=== PATIENT | male | born 1935 | race Asian ===

== ENCOUNTER 2017-09-22 19:24 | Emergency (ER) | payer OTHER, MEDICAID ==
[2017-09-22 21:12] LABS: % BASOPHILS 0.9 % (0.0-2.0); % EOSINOPHILS 5.4 % (0.0-5.0); % LYMPHOCYTES 12.4 % (20.0-50.0); % MONOCYTES 7.6 % (2.0-10.0); % NEUTROPHILS 73.7 % (40.0-80.0); BASOPHILE ABSOLUTE 0.1 Th/cumm (0-0.2); EOSINOPHILE ABSOLUTE 0.5 Th/cmm (0.1-0.4); HEMOGLOBIN 9.4 gm/dL (12-16); LYMPHOCYTE ABSOLUTE 1.1 Th/cmm (1.5-3.0); MEAN CELL VOLUME 79.3 fl (80-99); MEAN CORPUSCULAR HEMOGLOBIN 25.7 pg (27.0-31.0); MEAN CORPUSCULAR HGB CONC 32.4 pg (28.0-36.0); MONOCYTE ABSOLUTE 0.7 Th/cmm (0.3-1.0); NEUTROPHILE ABSOLUTE 6.3 Th/cmm (1.8-8.0); PLATELET COUNT 421 Th/cmm (150-400); RED BLOOD COUNT 3.65 Mil/cmm (3.80-5.80); RED CELL DISTRIBUTION WIDTH 18.5 % (11.5-20.0); WHITE BLOOD COUNT 8.7 Th/cmm (4.8-10.8)
[2017-09-22 21:38] LABS: INR 1.06 (0.5-1.4)
[2017-09-22 21:43] LABS: ALB/GLOB RATIO 1.2 (1.0-1.8); ALBUMIN 3.8 gm/dL (4.2-5.5); ALKALINE PHOSPHATASE 70 U/L (34-104); ANION GAP 12.5 (7.0-16.0); BILIRUBIN,TOTAL 0.3 mg/dL (0.3-1.0); BUN - UREA NITROGEN 26 mg/dL (7-25); CALCIUM SERUM 9.3 mg/dL (8.6-10.3); CARBON DIOXIDE 23.3 mEq/L (21.0-31.0); CHLORIDE 104 mEq/L (98-107); CREATININE - SERUM 1.7 mg/dL (0.7-1.3); GLUCOSE 103 mg/dL (70-105); POTASSIUM SERUM 3.8 mEq/L (3.5-5.1); SGOT 22 U/L (13-39); SGPT/ALT 13 U/L (7-52); SODIUM SERUM 136 mEq/L (136-145); TOTAL PROTEIN,SERUM 7.1 gm/dL (6.0-8.3)
[2017-09-22 22:22] LABS: URINE MICROSCOPIC INDICATED? YES; URINE SOURCE RANDOM
[2017-09-22 22:31] LABS: URINE BILIRUBIN NEGATIVE (NEGATIVE); URINE BLOOD NEGATIVE (NEGATIVE); URINE GLUCOSE (UA) NEGATIVE (NEGATIVE); URINE KETONE TRACE mg/dL (NEGATIVE); URINE LEUKOCYTE ESTERASE NEGATIVE (NEGATIVE); URINE NITRATE NEGATIVE (NEGATIVE); URINE PROTEIN TRACE mg/dL (NEGATIVE); URINE UROBILINOGEN 0.2 E.U./dL (0.2 - 1.0)
[2017-09-22 22:49] LABS: URINE CLARITY CLEAR (CLEAR); URINE COLOR YELLOW
[2017-09-22 22:59] LABS: URINE BACTERIA FEW /hpf (NONE SEEN); URINE EPITHELIAL CELLS OCCASIONAL /lpf (FEW); URINE RBC 0-2 /hpf (0-5); URINE WBC 0-2 /hpf (0-5)
[2017-09-22] MEDS ORDERED: Sodium Chloride 0.9% 1,000 ML IV ONE (23:51)
--- NOTE | 2017-09-23 09:00 | Diagnostic Imaging Report ---
Portable chest x-ray HISTORY: Shortness of breath The heart appears enlarged. Atherosclerotic calcification noted in the aorta. Increased density is noted in the left lower hemithorax. A pleural effusion cannot be excluded. Underlying consolidation or atelectasis cannot be ruled out. Cardiac pacemaker lead wire projects over the right ventricle. IMPRESSION: 1. Cardiomegaly with atherosclerotic calcification 2. Increased density left lower hemithorax. Pneumonia and/or atelectasis cannot be excluded. Question left pleural effusion. 3. Cardiac pacemaker placement
--- NOTE | 2017-11-07 21:59 | ER Physician Documentation ---
DATE OF SERVICE: 09/22/2017 CHIEF COMPLAINT: Syncope. HISTORY OF PRESENT ILLNESS: This is an 82-year-old male with a history of hypertension, presented to Emergency Room for evaluation of syncope episodes for about 5 minutes with loss of consciousness. The patient was brought by ambulance from home. Two days ago, the patient was discharged from [facility] where he received a thorough workup for GI bleed including EGD, colonoscopy. However, those results are pending from transferring to our hospital. After discharge, the patient has been doing well until today. The patient experienced a loss of consciousness for 5 minutes and the blood pressure was low, 62/42 and then the patient did not have any trauma from this loss of consciousness. At the Emergency Room, the patient is awake, alert and oriented. PAST MEDICAL HISTORY: Hypertension, anemia, and hypothyroidism. PAST SURGICAL HISTORY: None. SOCIAL HISTORY: The patient lives at home. Denies any alcohol, tobacco or illicit drug use. REVIEW OF SYSTEMS: GENERAL: The patient denies any headache. The patient has weakness. HEENT: There is no visual change and no sore throat. NECK: There is no nuchal rigidity. CHEST: Clear to auscultation. No chest pain. ABDOMEN: No nausea. No vomiting. EXTREMITIES: No pain. NEUROPSYCH: No focal deficit. PHYSICAL EXAMINATION: VITAL SIGNS: The patient's temperature was 97.7, blood pressure 116/64, pulse 75, respiratory rate 18, oxygen saturation 98% on room air. HEENT: Head atraumatic. Pupils equal, round and reactive to light and accommodated. NECK: No nuchal rigidity. CHEST: Clear to auscultation bilaterally. HEART: S1, S2. No murmurs. ABDOMEN: Soft, nontender, nondistended. EXTREMITIES: With full range of motion. NEUROLOGIC: Awake, alert, oriented to self, time, and place and follow commands. Motor strength 5/5. No sensory deficits. LABORATORY STUDIES: Shows the patient has a WBC 8.7, hemoglobin 9.4, hematocrit of 29. PT 11, INR 1.06, PTT 22.8. Sodium 136, potassium 3.8, chloride 104, bicarb 23.3, BUN 26, creatinine 1.7. Urinalysis essentially unremarkable except urine RBC 2 and hyaline casts ____. ASSESSMENT: The patient has a history of GI bleed and had extensive workup at ____ [facility] with an EGD and colonoscopy, result pending; however, the patient developed episodes of syncope with low blood pressure at home and at Emergency Room, his blood pressure has been normal. However, based on the lab results, BUN and creatinine ratio higher than 20. It is possible that the patient has volume depletion and also a potential continuation bleeding needs to be ruled out. PLAN: IV fluid treatment with 1 liter of normal saline IV bolus and secondly after the treatment, the patient has no symptoms and the patient request being discharged to home and the patient verbalized understanding that it is crucial for the patient to follow up with primary care physician if any symptoms of syncope, GI bleed or any episodes of hypotension occur. The patient's symptoms have improved, so the discharge plan is discharge the patient home. JOB# [id number]
== END 2017-09-23 01:05 | disposition home or self-care (01) ==
LOC: ER 19:24
DX: R55 Syncope and collapse (principal); I10 Essential (primary) hypertension; E03.9 Hypothyroidism, unspecified; D64.9 Anemia, unspecified
CPT/HCPCS: 36415-UA; 71010-TC; 80053-TC; 81001-TC; 85025-TC; 85610-TC; 93005; J7030

== ENCOUNTER 2017-09-25 11:20 | Inpatient (IN) | payer OTHER, MEDICAID ==
--- NOTE | 2017-09-25 11:25 | ED Physician Chart ---
ED Chief Complaint/HPI - Patient Information Date Seen:: 09/25/17 Time Seen:: 11:10 Chief Complaint:: Chest Pain History of Present Illness:: onset x one day of exertional Chest Pain radiating to Left Shoulder with melena ; pt denies H/Aas, neck pain, Dyspnea, Abd. Pain, A/N/V/D/C, fever, chills, or urinary s/s Allergies:: Allergies Allergy/AdvReac Type Severity Reaction Status Date / Time No Known Allergies Allergy Verified 09/22/17 19:34 Historian:: Patient, Family Member Review:: Nurse's Note Reviewed ED Review of Systems - Review of Systems General/Constitutional: No fever, No chills, No weight loss, No weakness, No diaphoresis, No edema, No loss of appetite Skin: No skin lesions, No rash, No bruising Head: No headache, No light-headedness Eyes: No loss of vision, No pain, No diplopia ENT: No earache, No nasal drainage, No sore throat, No tinnitus Neck: No neck pain, No swelling, No thyromegaly, No stiffness, No mass noted Cardio Vascular: Chest pain, No palpitations, No PND, No orthopnea, No edema Pulmonary: No SOB, No cough, No sputum, No wheezing GI: No nausea, No vomiting, No diarrhea, No pain, No melena, No hematochezia, No constipation, No hematemesis G/U: No dysuria, No frequency, No hematuria, No nacturia Musculoskeletal: No bone or joint pain, No back pain, No muscle pain Endocrine: No polyuria, No polydipsia Psychiatric: No prior psych history, No depression, No anxiety, No suicidal ideation, No homicidal ideation, No auditory hallucination, No visual hallucination Hematopoietic: No bruising, No lymphadenopathy Allergic/Immuno: No urticaria, No angioedema Neurological: No syncope, No focal symptoms, No weakness, No paresthesia, No headache, No seizure, No dizziness, No confusion, No vertigo ED Past Medical History - Past Medical History Obtainable: Yes Past Medical History: HTN, Dyslipidemia Family History: Diabetes Melitus, HTN Social History: Non Smoker, No Alcohol, No Drug Use, Surgical History: Pacemaker Psychiatricy History: None Medication: Reviewed Family Medical History - Family Member Mother Ethnicity: Non- ED Physical Exam - Physical Examination General/Constitutional: Awake, Well-developed, well-nourished, Alert, No distress, GCS 15, Non-toxic appearing, Ambulatory Head: Atraumatic Eyes: Lids, conjuctiva normal, PERRL, EOMI Skin: Nl inspection, No rash, No skin lesions, No ecchymosis, Well hydrated, No lymphadenopathy ENMT: External ears, nose nl, TM canals nl, Nasal exam nl, Lips, teeth, gums nl , Oropharynx nl, Tonsils nl Neck: Nontender, Full ROM w/o pain, No JVD, No nuchal rigidity, No bruit, No mass, No stridor Respiratory: Nl effort/Exclusion, Clear to Auscultation, No Wheeze/Rhonchi/Rales Cardio Vascular: RRR, No murmur, gallop, rubs, NL S1 S2, Carotid/Femoral/Distal pulses equal bilaterally GI: No tenderness/rebounding/guarding, No organomegaly, No hernia, Normal BS's, Nondistended, No mass/bruits, No McBurney tenderness : No CVA tenderness Extremities: No tenderness or effusion, Full ROM, normal strength in all extremities, No edema, Normal digits & nails Neuro/Psych: Alert/oriented, DTR's symmetric, Normal sensory exam, Normal motor strength, Judgement/insight normal, Mood normal, Normal gait, No focal deficits Misc: Normal back, No paraspinal tenderness ED Labs/Radiology/EKG Results - Lab Results Comments:: H/H: 8.4/26.7; Na+: 133 - Radiology Results Comments:: NAD - EKG Interpretations EKG Time:: 14:22 Rate & Rhythm: 61; NSR Comments:: old ASMI; non-specific st-t changes ED Septic Shock - . Is Septic Shock (SBP<90, OR Lactate>4 mmol\L) present?: No ED Reassessment (Disposition) - Reassessment Reassessment Condition:: Improved - Diagnosis Diagnosis:: Anemia; Chest Pain; Angina Pectoris; Hyponatremia - Aftercare/Follow up Instructions Aftercare/Follow-Up Instructions:: Counseled pt regarding lab results/diagnosis & need follow up, Counseled pt & family regarding lab results/diagnosis & need follow up - Patient Disposition Discharge/Transfer:: Acute Care w/in this hosp Accepting Physician:: Dr. Chen Time Called:: 1315 Time Responded:: 13:15 Admitted to:: Telemetry Spoke to:: Dr. Chen Admitting Medical Physician:: Dr. Chen Condition at Disposition:: Stable, Improved
[2017-09-25] MEDS ORDERED: Aspirin 81mg Chewable Tab PO STA (11:27)
[2017-09-25] MEDS ORDERED: Aspirin 81mg Chewable Tab ONE (11:40)
[2017-09-25 15:02] LABS: % BASOPHILS 0.4 % (0.0-2.0); % EOSINOPHILS 4.5 % (0.0-5.0); % LYMPHOCYTES 23.7 % (20.0-50.0); % MONOCYTES 7.1 % (2.0-10.0); % NEUTROPHILS 64.3 % (40.0-80.0); EOSINOPHILE ABSOLUTE 0.4 Th/cmm (0.1-0.4); HEMATOCRIT 26.7 % (41.0-60); HEMOGLOBIN 8.4 gm/dL (12-16); LYMPHOCYTE ABSOLUTE 1.8 Th/cmm (1.5-3.0); MEAN CELL VOLUME 78.4 fl (80-99); MEAN CORPUSCULAR HEMOGLOBIN 24.5 pg (27.0-31.0); MEAN CORPUSCULAR HGB CONC 31.3 pg (28.0-36.0); MEAN PLATELET VOLUME 7.3 fl; MONOCYTE ABSOLUTE 0.6 Th/cmm (0.3-1.0); PLATELET COUNT 376 Th/cmm (150-400); RED BLOOD COUNT 3.41 Mil/cmm (3.80-5.80); RED CELL DISTRIBUTION WIDTH 19.1 % (11.5-20.0); WHITE BLOOD COUNT 7.8 Th/cmm (4.8-10.8)
[2017-09-25 15:11] LABS: INR 1.05 (0.5-1.4); PROTHROMBIN TIME (TEST) 10.9 SECONDS (9.5-11.5)
[2017-09-25 15:36] LABS: ALB/GLOB RATIO 1.2 (1.0-1.8); ALBUMIN 3.7 gm/dL (4.2-5.5); ALKALINE PHOSPHATASE 63 U/L (34-104); ANION GAP 8.3 (7.0-16.0); BILIRUBIN,TOTAL 0.3 mg/dL (0.3-1.0); BUN - UREA NITROGEN 25 mg/dL (7-25); CALCIUM SERUM 8.8 mg/dL (8.6-10.3); CARBON DIOXIDE 23.4 mEq/L (21.0-31.0); CHLORIDE 105 mEq/L (98-107); CHOLESTEROL 165 mg/dL (<200); CREATININE - SERUM 1.3 mg/dL (0.7-1.3); CREATININE KINASE 111 U/L (30-223); GLUCOSE 96 mg/dL (70-105); HDL -HIGH DENSITY LIPOPROTEIN 58 mg/dL (23-92); POTASSIUM SERUM 3.7 mEq/L (3.5-5.1); SGOT 19 U/L (13-39); SGPT/ALT 11 U/L (7-52); SODIUM SERUM 133 mEq/L (136-145); TOTAL PROTEIN,SERUM 6.7 gm/dL (6.0-8.3); TRIGLYCERIDES 71 mg/dL (<150)
[2017-09-25] MEDS ORDERED: Aspirin 81mg Chewable Tab PO SCH (19:00)
[2017-09-25] MEDS ORDERED: Morphine Sulfate 2 mg/mL 1mL Syr IVP PRN (21:23)
[2017-09-25 22:10] VITALS: BP 161/74
[2017-09-25] MEDS ORDERED: Pneumococcal Vaccine 0.5 mL Vial IM ONE (22:34)
[2017-09-25] MEDS: Sodium Chloride 0.9% 1,000 ML IV SCH (22:52)
--- NOTE | 2017-09-26 08:27 | Diagnostic Imaging Report ---
Exam: Portable chest x-ray HISTORY: Chest pain Findings: Portable examination of the chest at the 1635 hours reviewed compatible prior study 09/22/2017. The study demonstrates a left basilar thin cut changes with left pleural effusion. Results structures midline the heart is prominent aortic arch calcified. The right lung parenchyma is well aerated. Left-sided pacemaker is noted. Bony thorax intact IMPRESSION 11 cardiomegaly 2. Left basilar atelectasis versus small effusion, follow-up examination recommended.
[2017-09-26] MEDS: Sodium Chloride 0.9% 1,000 ML IV SCH (09:34)
[2017-09-26 11:01] LABS: % BASOPHILS 0.4 % (0.0-2.0); % EOSINOPHILS 11.2 % (0.0-5.0); % LYMPHOCYTES 21.4 % (20.0-50.0); % MONOCYTES 7.8 % (2.0-10.0); % NEUTROPHILS 59.2 % (40.0-80.0); EOSINOPHILE ABSOLUTE 0.8 Th/cmm (0.1-0.4); HEMATOCRIT 26.3 % (41.0-60); HEMOGLOBIN 8.7 gm/dL (12-16); LYMPHOCYTE ABSOLUTE 1.5 Th/cmm (1.5-3.0); MEAN CELL VOLUME 77.9 fl (80-99); MEAN CORPUSCULAR HEMOGLOBIN 25.8 pg (27.0-31.0); MEAN CORPUSCULAR HGB CONC 33.1 pg (28.0-36.0); MEAN PLATELET VOLUME 7.5 fl; MONOCYTE ABSOLUTE 0.5 Th/cmm (0.3-1.0); NEUTROPHILE ABSOLUTE 4.2 Th/cmm (1.8-8.0); PLATELET COUNT 361 Th/cmm (150-400); RED BLOOD COUNT 3.37 Mil/cmm (3.80-5.80); RED CELL DISTRIBUTION WIDTH 18.4 % (11.5-20.0)
[2017-09-26 12:27] LABS: ANION GAP 11.7 (7.0-16.0); BUN - UREA NITROGEN 20 mg/dL (7-25); CALCIUM SERUM 8.9 mg/dL (8.6-10.3); CHLORIDE 107 mEq/L (98-107); CREATININE - SERUM 1.3 mg/dL (0.7-1.3); GLUCOSE 98 mg/dL (70-105); POTASSIUM SERUM 3.7 mEq/L (3.5-5.1); SODIUM SERUM 138 mEq/L (136-145)
--- NOTE | 2017-09-26 12:48 | Consultation ---
DATE OF CONSULTATION: 09/26/2017 INPATIENT GASTROINTESTINAL CONSULTATION REFERRING PHYSICIAN: Dr. Chen. REASON FOR CONSULTATION: GI bleeding. HISTORY: This is a pleasant 82-year-old male who presents to the hospital because of melena that was noticed on one episode. The patient denies having abdominal pain. Denies nausea, vomiting, coffee-ground emesis, hematemesis, diarrhea, constipation. He apparently had GI bleeding, was at [facility] less than a week ago for the same problem of GI bleeding. He had extensive workup according to the where they did an endoscopy, colonoscopy and we do not have these records. The patient is not having any active bleeding at this time. PAST MEDICAL HISTORY: Hypertension, hyperlipidemia. PAST SURGICAL HISTORY: Noncontributory. He has a pacemaker. FAMILY HISTORY: He has a son with colon cancer. SOCIAL HISTORY: Denies tobacco, alcohol or IV drug usage. ALLERGIES: None. CURRENT MEDICATIONS: Vasotec, morphine, Zofran, Protonix. REVIEW OF SYSTEMS: Ten point review of system was performed and pertinent positive was the melena. All other systems were otherwise negative. PHYSICAL EXAMINATION: VITAL SIGNS: Temperature 98.1, breathing 17, pulse of 77, blood pressure 144/72, satting 99%. GENERAL: In no apparent distress. EYES: Anicteric. Normal conjunctivae. HEENT: Normocephalic, atraumatic. Moist mucous membranes. NECK: Soft, supple. CHEST: Clear. No effort. CARDIOVASCULAR: Regular rate and rhythm. ABDOMEN: Soft, nontender, nondistended. SKIN: Warm, dry. EXTREMITIES: Reveal no cyanosis. PSYCHOLOGIC: Alert and oriented x 3. LABORATORY DATA: Show white count 7, hemoglobin 8.7, platelets 361. INR 1.05. LFTs were within normal limits. Creatinine 1.3. IMPRESSION: An 82-year-old male with melena. Cause could be residual from previous GI bleeding, had extensive workup at [facility] less than a week ago where endoscopy, colonoscopy were done, we can get records of these things. PLAN: 1. Await records of EGD and colonoscopy. 2. Follow H and H and transfuse as needed. 3. Continue the Protonix. 4. If bleeding becomes more prominent, options could include bleeding scan and/or angiography. Thank you for allowing me to participate. Please call me if any questions. [facility]# [id number]
--- NOTE | 2017-09-26 13:02 | Consultation ---
DATE OF CONSULTATION: 09/26/[address] Gustavo Durham. HISTORY OF PRESENT ILLNESS: This is an 82-year-old male patient who was recently discharged 3 days prior to this admission from [facility]. The patient had been admitted with rectal bleeding, syncope. The patient had a total GI workup, echocardiogram and cardiac workup, which was negative. At this time, the patient was discharged. ____ the patient was brought here, the patient had a black stool. No history of PND, orthopnea. No history of chest pain. No history of palpitation. PAST MEDICAL HISTORY: The patient has a history of syncope, GI bleed, BPH. FAMILY HISTORY: Unremarkable. SOCIAL HISTORY: No history of smoking, alcohol abuse. ALLERGIES: No known allergies. PHYSICAL EXAMINATION: VITAL SIGNS: Blood pressure 130/80, pulse 70, respirations 20. HEAD: Normocephalic. No lumps or bumps. EYES: Pupils equal, reactive to light. Fundi show AV nicking, sclerae white, conjunctivae pink. NECK: Carotid 2+. Normal upstroke. JVD flat. Thyroid not palpable. Lymph nodes not palpable. CHEST: Shows increased AP diameter. No kyphosis, scoliosis. LUNGS: Bilateral bronchovesicular breath sounds. HEART: PMI fifth intercostal space with lateral to midclavicular line. S1, S2. No S3, S4. Soft systolic murmur. ABDOMEN: Soft. Liver and spleen not palpable. No organomegaly. Bowel sounds active. NEUROLOGIC: No focal neurological deficit. EXTREMITIES: Peripheral pulses 2+. No pedal edema. CLINICAL IMPRESSION: 1. Rectal bleed. 2. Syncope. 3. No chest pain. PLAN: At the present time, patient will be monitored on telemetry bed. GI workup. Since echocardiogram was recently done, which is unremarkable according to the family. No new one will be done. [facility]# [id number]
--- NOTE | 2017-09-26 19:07 | History & Physical ---
ADMIT DATE: 09/25/2017 CHIEF COMPLAINT: Black tarry stool. HISTORY OF PRESENT ILLNESS: This is an 82-year-old male with underlying history of hypertension, was brought to Emergency Room for evaluation of the back stool. The patient stated that he was at [facility] 2 days ago for syncopal episode, found to have GI bleed, had EGD, colonoscopy done, does not remember the results, but her the patient was discharged home with iron supplement. The patient is still having back color stool, so the patient was concerned and came back to the Emergency Room. The patient was evaluated in the Emergency Room. The patient was noticed to have low hemoglobin of 8.4, hematocrit 26.7, admitted for further evaluation and treatment. At the time of evaluation, the patient denies any nausea, no vomiting, no abdominal pain. No fever, no chills, no chest pain, no shortness of breath. No dizziness, no palpitations. However, he did complain of chest pain while being evaluated in the Emergency Room. PAST MEDICAL HISTORY: Recent syncope, hypertension. PAST SURGICAL HISTORY: Denies any past surgeries. FAMILY HISTORY: Denies significant family history. SOCIAL HISTORY: Lives at home. Denies any alcohol, tobacco or street drug use. CURRENT MEDICATIONS: Vasotec, morphine, IV fluid, Zofran, and Protonix. REVIEW OF SYSTEMS: As per HPI, 12-point system reviewed appears negative. PHYSICAL EXAMINATION: VITAL SIGNS: Temperature 97.8, pulse 80, respirations 18, blood pressure 122/68. HEART: S1, S2 normal. LUNGS: Clear to auscultation bilaterally. ABDOMEN: Soft, nontender. NEUROLOGIC: The patient is alert, awake, follows commands. Moves all extremities. Negative for edema, no calf tenderness. Good pulses. AVAILABLE LABORATORY DATA: WBC 7.0, hemoglobin 8.7, hematocrit 26.3, platelets count 361. PT 10.9, INR 1.05. Sodium 130, potassium 3.7, BUN 20, creatinine 1.3, AST 19, ALT 11. Troponin 0.01, 0.00, and 0.1. LDL is 103, HDL 58, ASSESSMENT: 1. Gastrointestinal bleed. 2. Hypertension. 3. Anemia. PLAN OF CARE: The patient will be kept n.p.o. Protonix started. GI was consulted. The patient was seen by GI this morning, will obtain record from [facility] for further review. Also seen by Cardiology for chest pain, no acute cardiac issues were identified. No further cardiac workup was recommended. The patient got IV fluid, Zofran and morphine as needed. Discussed with the patient and regarding patient's condition, verbalized understanding Follow up labs in the morning. JOB# [id number] KEI
[2017-09-27 05:46] LABS: % EOSINOPHILS 11.8 % (0.0-5.0); % LYMPHOCYTES 22.9 % (20.0-50.0); % MONOCYTES 9.7 % (2.0-10.0); % NEUTROPHILS 54.6 % (40.0-80.0); BASOPHILE ABSOLUTE 0.1 Th/cumm (0-0.2); EOSINOPHILE ABSOLUTE 0.8 Th/cmm (0.1-0.4); HEMATOCRIT 25.9 % (41.0-60); HEMOGLOBIN 8.2 gm/dL (12-16); LYMPHOCYTE ABSOLUTE 1.6 Th/cmm (1.5-3.0); MEAN CORPUSCULAR HEMOGLOBIN 25.1 pg (27.0-31.0); MEAN CORPUSCULAR HGB CONC 31.8 pg (28.0-36.0); MEAN PLATELET VOLUME 7.4 fl; MONOCYTE ABSOLUTE 0.7 Th/cmm (0.3-1.0); NEUTROPHILE ABSOLUTE 3.6 Th/cmm (1.8-8.0); PLATELET COUNT 330 Th/cmm (150-400); RED BLOOD COUNT 3.28 Mil/cmm (3.80-5.80); RED CELL DISTRIBUTION WIDTH 18.7 % (11.5-20.0); WHITE BLOOD COUNT 6.8 Th/cmm (4.8-10.8)
--- NOTE | 2017-09-27 13:02 | GI Progress Note ---
Subjective - Review of Systems Subjective: NO EVENTS NO GI BLEEDING Objective - Results Result Diagrams: 09/27/17 05:30 09/26/17 06:05 Recent Labs: Laboratory Last Values WBC 6.8 Th/cmm (4.8-10.8) 09/27/17 05:30 RBC 3.28 Mil/cmm (3.80-5.80) L 09/27/17 05:30 Hgb 8.2 gm/dL (12-16) L 09/27/17 05:30 Hct 25.9 % (41.0-60) L 09/27/17 05:30 MCV 79.0 fl (80-99) L 09/27/17 05:30 MCH 25.1 pg (27.0-31.0) L 09/27/17 05:30 MCHC Differential 31.8 pg (28.0-36.0) 09/27/17 05:30 RDW 18.7 % (11.5-20.0) 09/27/17 05:30 Plt Count 330 Th/cmm (150-400) 09/27/17 05:30 MPV 7.4 fl 09/27/17 05:30 Neutrophils % 54.6 % (40.0-80.0) 09/27/17 05:30 Lymphocytes % 22.9 % (20.0-50.0) 09/27/17 05:30 Monocytes % 9.7 % (2.0-10.0) 09/27/17 05:30 Eosinophils % 11.8 % (0.0-5.0) H 09/27/17 05:30 Basophils % 1.0 % (0.0-2.0) 09/27/17 05:30 PT 10.9 SECONDS (9.5-11.5) 09/25/17 14:32 INR 1.05 (0.5-1.4) 09/25/17 14:32 Sodium 138 mEq/L (136-145) 09/26/17 06:05 Potassium 3.7 mEq/L (3.5-5.1) 09/26/17 06:05 Chloride 107 mEq/L (98-107) 09/26/17 06:05 Carbon Dioxide 23.0 mEq/L (21.0-31.0) 09/26/17 06:05 Anion Gap 11.7 (7.0-16.0) 09/26/17 06:05 BUN 20 mg/dL (7-25) 09/26/17 06:05 Creatinine 1.3 mg/dL (0.7-1.3) 09/26/17 06:05 Est GFR ( Amer) TNP 09/26/17 06:05 Est GFR (Non-Af Amer) TNP 09/26/17 06:05 BUN/Creatinine Ratio 15.4 09/26/17 06:05 Glucose 98 mg/dL (70-105) 09/26/17 06:05 Calcium 8.9 mg/dL (8.6-10.3) 09/26/17 06:05 Total Bilirubin 0.3 mg/dL (0.3-1.0) 09/25/17 14:32 AST 19 U/L (13-39) 09/25/17 14:32 ALT 11 U/L (7-52) 09/25/17 14:32 Alkaline Phosphatase 63 U/L (34-104) 09/25/17 14:32 Creatine Kinase 111 U/L (30-223) 09/25/17 14:32 Troponin I 0.01 ng/mL (0.01-0.05) 09/26/17 06:05 B-Natriuretic Peptide 62.6 pg/mL (5.0-100.0) 09/27/17 05:30 Total Protein 6.7 gm/dL (6.0-8.3) 09/25/17 14:32 Albumin 3.7 gm/dL (4.2-5.5) L 09/25/17 14:32 Globulin 3.0 gm/dL 09/25/17 14:32 Albumin/Globulin Ratio 1.2 (1.0-1.8) 09/25/17 14:32 Triglycerides 71 mg/dL (<150) 09/25/17 14:32 Cholesterol 165 mg/dL (<200) 09/25/17 14:32 LDL Cholesterol Direct 103 mg/dL (75-193) 09/25/17 14:32 HDL Cholesterol 58 mg/dL (23-92) 09/25/17 14:32 Stool Occult Blood NEGATIVE (NEGATIVE) 09/26/17 16:00 - Physical Exam Vitals and I&O: Vital Signs Temp 97.0 F 09/27/17 08:00 Pulse 68 09/27/17 08:00 Resp 20 09/27/17 08:00 BP 122/64 09/27/17 08:00 Pulse Ox 96 09/27/17 08:00 Intake & Output 09/26/17 09/27/17 09/27/17 18:59 06:59 18:59 Intake Total 856 Balance 856 Weight (lbs) 73.663 kg Intake: Intake, IV Amount 856 Sodium Chloride 0.9% 1, 856 000 ml @ 80 mls/hr IV . [id number] [facility] Rx#:[id number] Other: Stool Characteristics Soft Soft Soft Formed Formed Formed Active Medications: Current Medications Enalaprilat (Vasotec) 2.5 mg IVP Q6HR PRN PRN Reason: SBP > 160 Stop: 11/24/17 22:16 Sodium Chloride (Nacl 0.9%) 1,000 mls @ 80 mls/hr IV .[id number] [facility] Stop: 11/24/17 21:31 Last Admin: 09/26/17 09:34 Dose: 80 mls/hr Morphine Sulfate (Morphine) 2 mg IVP Q4HR PRN PRN Reason: Severe Pain Stop: 11/24/17 21:22 Ondansetron HCl (Zofran) 4 mg IV Q4H PRN PRN Reason: Nausea / Vomiting Stop: 11/24/17 21:22 Pantoprazole Sodium (Protonix) 40 mg IVP DAILY [facility] Stop: 11/25/17 08:59 Last Admin: 09/27/17 08:17 Dose: 40 mg Assessment/Plan - Problem List Patient Problems: All Active Problems LEFT SHOULDER PAIN WITH TARRY STOOLS (Acute) - Assessment Assessment: 82 YO MALE WITH MELENA RESOLVED RECENT EGD SHOWED HIATAL HERNIA AND GASTRITIS RECENT COLO SHOWED DIVERTICULOSIS AND SMALL CECAL POLYPS 1.FOLLOW H/H 2.IF REBLEED CONSIDER BLEEDING SCAN 3.PROTONIX - Plan Plan: NO GI BLEEDING
--- NOTE | 2017-09-27 16:00 | General Progress Note ---
Subjective - Review of Systems Service Date: 09/27/17 Subjective: Patient feels better Hb stable I reviewed medical records from [facility] with GI Objective - Results Result Diagrams: 09/27/17 05:30 09/26/17 06:05 Recent Labs: Laboratory Last Values WBC 6.8 Th/cmm (4.8-10.8) 09/27/17 05:30 RBC 3.28 Mil/cmm (3.80-5.80) L 09/27/17 05:30 Hgb 8.2 gm/dL (12-16) L 09/27/17 05:30 Hct 25.9 % (41.0-60) L 09/27/17 05:30 MCV 79.0 fl (80-99) L 09/27/17 05:30 MCH 25.1 pg (27.0-31.0) L 09/27/17 05:30 MCHC Differential 31.8 pg (28.0-36.0) 09/27/17 05:30 RDW 18.7 % (11.5-20.0) 09/27/17 05:30 Plt Count 330 Th/cmm (150-400) 09/27/17 05:30 MPV 7.4 fl 09/27/17 05:30 Neutrophils % 54.6 % (40.0-80.0) 09/27/17 05:30 Lymphocytes % 22.9 % (20.0-50.0) 09/27/17 05:30 Monocytes % 9.7 % (2.0-10.0) 09/27/17 05:30 Eosinophils % 11.8 % (0.0-5.0) H 09/27/17 05:30 Basophils % 1.0 % (0.0-2.0) 09/27/17 05:30 PT 10.9 SECONDS (9.5-11.5) 09/25/17 14:32 INR 1.05 (0.5-1.4) 09/25/17 14:32 Sodium 138 mEq/L (136-145) 09/26/17 06:05 Potassium 3.7 mEq/L (3.5-5.1) 09/26/17 06:05 Chloride 107 mEq/L (98-107) 09/26/17 06:05 Carbon Dioxide 23.0 mEq/L (21.0-31.0) 09/26/17 06:05 Anion Gap 11.7 (7.0-16.0) 09/26/17 06:05 BUN 20 mg/dL (7-25) 09/26/17 06:05 Creatinine 1.3 mg/dL (0.7-1.3) 09/26/17 06:05 Est GFR ( Amer) TNP 09/26/17 06:05 Est GFR (Non-Af Amer) TNP 09/26/17 06:05 BUN/Creatinine Ratio 15.4 09/26/17 06:05 Glucose 98 mg/dL (70-105) 09/26/17 06:05 Calcium 8.9 mg/dL (8.6-10.3) 09/26/17 06:05 Total Bilirubin 0.3 mg/dL (0.3-1.0) 09/25/17 14:32 AST 19 U/L (13-39) 09/25/17 14:32 ALT 11 U/L (7-52) 09/25/17 14:32 Alkaline Phosphatase 63 U/L (34-104) 09/25/17 14:32 Creatine Kinase 111 U/L (30-223) 09/25/17 14:32 Troponin I 0.01 ng/mL (0.01-0.05) 09/26/17 06:05 B-Natriuretic Peptide 62.6 pg/mL (5.0-100.0) 09/27/17 05:30 Total Protein 6.7 gm/dL (6.0-8.3) 09/25/17 14:32 Albumin 3.7 gm/dL (4.2-5.5) L 09/25/17 14:32 Globulin 3.0 gm/dL 09/25/17 14:32 Albumin/Globulin Ratio 1.2 (1.0-1.8) 09/25/17 14:32 Triglycerides 71 mg/dL (<150) 09/25/17 14:32 Cholesterol 165 mg/dL (<200) 09/25/17 14:32 LDL Cholesterol Direct 103 mg/dL (75-193) 09/25/17 14:32 HDL Cholesterol 58 mg/dL (23-92) 09/25/17 14:32 Stool Occult Blood NEGATIVE (NEGATIVE) 09/26/17 16:00 - Physical Exam Vitals and I&O: Vital Signs Temp 98.2 F 09/27/17 12:00 Pulse 65 09/27/17 12:00 Resp 20 09/27/17 12:00 BP 126/65 09/27/17 12:00 Pulse Ox 95 09/27/17 12:00 Intake & Output 09/26/17 09/27/17 09/27/17 18:59 06:59 18:59 Intake Total 856 Balance 856 Weight (lbs) 73.663 kg Intake: Intake, IV Amount 856 Sodium Chloride 0.9% 1, 856 000 ml @ 80 mls/hr IV . [id number] [facility] Rx#:[id number] Other: Stool Characteristics Soft Soft Soft Formed Formed Formed Active Medications: Current Medications Enalaprilat (Vasotec) 2.5 mg IVP Q6HR PRN PRN Reason: SBP > 160 Stop: 11/24/17 22:16 Sodium Chloride (Nacl 0.9%) 1,000 mls @ 80 mls/hr IV .[id number] [facility] Stop: 11/24/17 21:31 Last Admin: 09/26/17 09:34 Dose: 80 mls/hr Morphine Sulfate (Morphine) 2 mg IVP Q4HR PRN PRN Reason: Severe Pain Stop: 11/24/17 21:22 Ondansetron HCl (Zofran) 4 mg IV Q4H PRN PRN Reason: Nausea / Vomiting Stop: 11/24/17 21:22 Pantoprazole Sodium (Protonix) 40 mg IVP DAILY [facility] Stop: 11/25/17 08:59 Last Admin: 09/27/17 08:17 Dose: 40 mg Cardiovascular: Regular rate Lungs: Clear to auscultation Assessment/Plan - Problem List Patient Problems: All Active Problems LEFT SHOULDER PAIN WITH TARRY STOOLS (Acute) - Assessment Assessment: GI bleed unclear source HTN - Plan Plan: Bleeding scan Protonix Continue clear liquids Per GI ok to HI home later today if scan is negative Plan of care discussed with patient and nursing staff
--- NOTE | 2017-09-27 17:29 | Cardiology ---
09/26/2017 ECHOCARDIOGRAM REPORT The patient of Dr. Gustavo Durham. M-MODE ECHOCARDIOGRAM: Mitral valve, anterior leaflet of mitral valve shows normal excursion, EF velocity. Posterior leaflet of the mitral valve shows normal excursion. Left ventricular posterior wall shows increased thickness, normal excursion. Interventricular septum shows increased thickness, normal excursion, hypertrophy of the left ventricle, ejection fraction 60%. Left atrium enlarged 4.2 cm. Aortic root shows normal dimension, normal excursion of aortic leaflets. CONCLUSION: Left atrial enlargement. Hypertrophy of the left ventricle, ejection fraction 60%. 2D ECHO: Long axis view showed normal sized left ventricle with hypertrophy of the left ventricle. Left atrium normal. Aortic root shows normal dimension, normal excursion of aortic leaflets. Short axis view of mitral valve normal. Short axis view of aortic valve normal. Apical four chamber view shows normal sized left ventricle with hypertrophy of the left ventricle. Left atrium enlarged. Right ventricular cavity normal. Right atrial enlargement. CONCLUSION: Hypertrophy of the left ventricle. Left atrial enlargement, right atrial enlargement, ejection fraction 60%. Doppler study shows mild aortic regurgitation, mild tricuspid regurgitation, right ventricular systolic pressure 38 mmHg. Mild pulmonary regurgitation. [facility]# [id number]
[2017-09-27] MEDS: Sodium Chloride 0.9% 1,000 ML IV SCH (23:12)
--- NOTE | 2017-09-28 08:33 | Diagnostic Imaging Report ---
Nuclear medicine tagged red blood cell scan History: Melena Comparison: None Technique/procedure: 21 mCi of technetium 99 tagged red blood cells was administered intravenously and angiogram and sequential images were obtained from the 60 minutes Findings: There is no evidence of active GI bleeding. No other focal abnormalities identified. IMPRESSION: No scintigraphic evidence of active GI bleeding.
== END 2017-09-28 13:20 | disposition home or self-care (01) | DRG 378 ==
LOC: ER 11:20 → TELE 17:38 → MSI 09-27 18:46
PROVIDERS: ADMIT Family Medicine; ATTEND Family Medicine
DX: K29.71 Gastritis, unspecified, with bleeding (principal); E87.1 Hypo-osmolality and hyponatremia; K57.91 Diverticulosis of intestine, part unspecified, without perforation or abscess with bleeding; D64.9 Anemia, unspecified; I20.9 Angina pectoris, unspecified; K62.5 Hemorrhage of anus and rectum; I10 Essential (primary) hypertension; R55 Syncope and collapse; N40.0 Benign prostatic hyperplasia without lower urinary tract symptoms; E78.5 Hyperlipidemia, unspecified; D12.0 Benign neoplasm of cecum; K27.9 Peptic ulcer, site unspecified, unspecified as acute or chronic, without hemorrhage or perforation; Z83.3 Family history of diabetes mellitus; Z95.0 Presence of cardiac pacemaker; Z82.49 Family history of ischemic heart disease and other diseases of the circulatory system
CPT/HCPCS: 36415-UA; 71010-TC; 78278-TC; 80048-TC; 80053-TC; 80061-TC; 82270-TC; 82550-TC; 83880-TC; 84484-TC; 85025-TC; 85610-TC; 93005; 94760; A9512; C9113; J7030; Z7610